=== PATIENT | male | born 1995 | race Caucasian/White ===

== ENCOUNTER 2018-05-22 18:42 | Emergency (ER) | payer SELFPAY ==
[2018-05-22 18:54] VITALS: BP 143/85; PULSE 82; RESP 16; TEMP 98.7; O2SAT 99
[2018-05-22 19:18] LABS: URINE BILIRUBIN NEGATIVE (NEGATIVE); URINE BLOOD NEGATIVE (NEGATIVE); URINE CLARITY Clear (Clear); URINE COLOR Yellow (YELLOW); URINE GLUCOSE (UA) NORMAL (Normal); URINE LEUKOCYTE ESTERASE NEG Leu/uL (Negative); URINE PROTEIN NEGATIVE (NEGATIVE); URINE UROBILINOGEN NORMAL mg/dL (0.2-1.0)
[2018-05-22] MEDS ORDERED: cefTRIAXone 250 MG, Lidocaine Hydrochloride 1% 1 ML IM ONE (20:08)
--- NOTE | 2018-05-22 20:33 | C.PDOC ---
History Of Present Illness 22 y/o male presents to the ED with a 2 week history of dysuria. Patient describes burning on urination. He denies any abdominal pain, back pain, fever, or chills. Time Seen by Provider: 05/22/18 19:02 Chief Complaint (Nursing): Male Genitourinary History Per: Patient History/Exam Limitations: no limitations Onset/Duration Of Symptoms: Days Current Symptoms Are (Timing): Still Present Associated Symptoms: Urinary Symptoms Past Medical History Reviewed: Historical Data, Nursing Documentation, Vital Signs Vital Signs: Last Vital Signs Temp 98.7 F 05/22/18 18:49 Pulse 82 05/22/18 18:49 Resp 16 05/22/18 18:49 BP 143/85 05/22/18 18:49 Pulse Ox 99 05/22/18 20:33 - Medical History PMH: No Chronic Diseases Surgical History: No Surg Hx Family History: States: No Known Family Hx - Social History Hx Alcohol Use: No Hx Substance Use: No - Immunization History Hx Tetanus Toxoid Vaccination: No Hx Influenza Vaccination: No Hx Pneumococcal Vaccination: No Review Of Systems Except As Marked, All Systems Reviewed And Found Negative. Constitutional: Negative for: Fever, Chills Gastrointestinal: Negative for: Vomiting, Abdominal Pain Genitourinary: Positive for: Dysuria (burning). Negative for: Frequency, Incontinence Musculoskeletal: Negative for: Back Pain Physical Exam - Physical Exam Appears: Non-toxic, No Acute Distress Skin: Normal Color, Warm Head: Atraumatic, Normacephalic Eye(s): bilateral: Normal Inspection Oral Mucosa: Moist Neck: Normal ROM, Supple Chest: Symmetrical Cardiovascular: Rhythm Regular, No Murmur Respiratory: Normal Breath Sounds, No Accessory Muscle Use Gastrointestinal/Abdominal: Soft, No Tenderness, No Distention, No Guarding Back: Normal Inspection Extremity: Bilateral: Atraumatic, Normal Color And Temperature, Normal ROM Neurological/Psych: Oriented x3, Normal Speech Gait: Steady ED Course And Treatment O2 Sat by Pulse Oximetry: 99 (RA) Pulse Ox Interpretation: Normal Medical Decision Making Medical Decision Making: Plan: --Urinalysis --Urine C&S --Chlamydia/GC RNA, TMA Upon further discussion, patient presents rx from outpatient clinic stating treat for chlamydia. Patient treated with IM Rocephin and PO Zithromax. Disposition - Disposition Referrals: [facility] [Outside] Disposition: HOME/ ROUTINE Disposition Time: 20:32 Condition: FAIR Additional Instructions: Follow up with the medical doctor within 1-2 days without fail. Return if worsened. Instructions: Urethritis (DC) Forms: [employer] (Faroese) Print Language: CZECH - Clinical Impression Clinical Impression: Urethritis - PA / [employer] / Resident Statement MD/DO has reviewed & agrees with the documentation as recorded. - Scribe Statement The provider has reviewed the documentation as recorded by the Scribe (Ashlyn Estevez) All medical record entries made by the Scribe were at my direction and personally dictated by me. I have reviewed the chart and agree that the record accurately reflects my personal performance of the history, physical exam, medical decision making, and the department course for this patient. I have also personally directed, reviewed, and agree with the discharge instructions and disposition.
== END 2018-05-22 20:43 | disposition home or self-care (01) ==
LOC: C.ER 18:42
DX: N34.2 Other urethritis (principal)
CPT/HCPCS: 81001; 87086; 87491; 87591; 96372; 99283; J0696